=== PATIENT | male | born 1985 | race Caucasian/White ===

== ENCOUNTER 2025-09-18 14:19 | Emergency (ER) | payer SELFPAY ==
[~2025-09-18] VITALS: Ht 177.8 cm; Wt 75.0 kg
[2025-09-18 14:22] VITALS: O2SAT 98
[2025-09-18] MEDS: SODIUM CHLORIDE 0.9% 1,000 ML IV ONE (14:57)
[2025-09-18 15:04] LABS: BASOPHILS % 0.8 % (0.0-2.0); EOSINOPHILS % 0.4 % (0.0-5.0); HEMATOCRIT. 44.9 % (42.0-52.0); HEMOGLOBIN. 15.7 g/dL (14.0-18.0); LYMPHOCYTES % 33.2 % (20.0-50.0); MEAN PLATELET VOLUME 10.0 fl (7.4-10.4); MONOCYTES % 5.8 % (2.0-8.0); NEUTROPHILS % 59.8 % (40.0-76.0); PLATELET 222 x1000/uL (130-400); RED BLOOD CELL COUNT 5.00 mill/uL (4.7-6.1); RED CELL DISTRIBUTION WIDTH 12.6 % (11.6-14.6)
[2025-09-18 15:16] LABS: CREATININE 1.2 mg/dL (0.6-1.3)
[2025-09-18 15:17] LABS: UREA NITROGEN BLOOD 9 mg/dL (9-23)
[2025-09-18 15:18] LABS: ASPARTATE AMINOTRANSFERASE 24 IU/L (<34)
[2025-09-18 15:19] LABS: BILIRUBIN DIRECT 0.3 mg/dL (<=3.0); BILIRUBIN TOTAL 1.0 mg/dL (0.1-1.0); PROTEIN TOTAL 7.5 g/dL (6.0-8.3)
[2025-09-18 15:20] LABS: TROPONIN I HIGH SENSITIVITY < 4 ng/L (3.0-53)
[2025-09-18 15:22] LABS: T4 FREE 1.44 ng/dL (0.89-1.76)
[2025-09-18 15:24] LABS: INR 1.0
[2025-09-18 17:42] VITALS: BP 122/77; PULSE 82; RESP 16; TEMP 37.2; O2SAT 98
[2025-09-18 18:47] LABS: INFLUENZA TYPE A Presumptive Negative (Pres. Neg.); INFLUENZA TYPE B Presumptive Negative (Pres. Neg.); RESPIRATORY SYNCYTIAL VIRUS Not Detected (Not Detectd)
== END 2025-09-18 17:45 | disposition home or self-care (01) ==
LOC: ER 15:17 → CMPBEDREQ 09-19 11:08
DX: I47.9 Paroxysmal tachycardia, unspecified (principal); R00.2 Palpitations; E78.00 Pure hypercholesterolemia, unspecified; Z20.822 Contact with and (suspected) exposure to COVID-19
CPT/HCPCS: 99285; 96360; 71045; 87426; 80076; 80048; 84439; 83735; 84443; 85025; 85379; 85610; 87420; 84484; 87804 ×2; 36415; 93005; J7030

== ENCOUNTER 2025-09-22 14:02 | Inpatient (IN) | payer OTHER ==
[~2025-09-22] VITALS: Ht 170.2 cm; Wt 74.5 kg
[2025-09-22 14:04] VITALS: O2SAT 100
[2025-09-22] MEDS: SODIUM CHLORIDE 0.9% 1,000 ML IV ONE (14:45)
[2025-09-22 15:05] LABS: BASOPHILS % 1.0 % (0.0-2.0); EOSINOPHILS % 0.9 % (0.0-5.0); HEMATOCRIT. 44.4 % (42.0-52.0); HEMOGLOBIN. 15.4 g/dL (14.0-18.0); LYMPHOCYTES % 28.2 % (20.0-50.0); MEAN PLATELET VOLUME 9.8 fl (7.4-10.4); MONOCYTES % 5.5 % (2.0-8.0); NEUTROPHILS % 64.4 % (40.0-76.0); PLATELET 206 x1000/uL (130-400); RED BLOOD CELL COUNT 4.92 mill/uL (4.7-6.1); RED CELL DISTRIBUTION WIDTH 12.5 % (11.6-14.6)
[2025-09-22 15:19] LABS: CREATININE 1.1 mg/dL (0.6-1.3); UREA NITROGEN BLOOD 11 mg/dL (9-23)
[2025-09-22 15:21] LABS: TROPONIN I HIGH SENSITIVITY < 4 ng/L (3.0-53)
[2025-09-22 15:29] LABS: INR 1.0
[2025-09-22] MEDS: LORAZEPAM 1MG TABLET PO STA (16:28)
[2025-09-22 17:15] LABS: *AMPHETAMINES SCREEN URINE NEGATIVE (NEGATIVE); *BARBITURATES SCREEN URINE NEGATIVE (NEGATIVE); *BENZODIAZEPINES SCREEN URINE NEGATIVE (NEGATIVE); *COCAINE SCREEN URINE NEGATIVE (NEGATIVE); CANNABINOID URINE SCREEN NEGATIVE (NEGATIVE); ECSTASY MDMA SCREEN URINE NEGATIVE (NEGATIVE); METHADONE URINE SCREEN NEGATIVE (NEGATIVE); OPIATES URINE SCREEN NEGATIVE (NEGATIVE); PHENCYCLIDINE URINE SCREEN NEGATIVE (NEGATIVE)
[2025-09-22 19:33] LABS: TROPONIN I HIGH SENSITIVITY < 4 ng/L (3.0-53)
[2025-09-22] MEDS ORDERED: ACETAMINOPHEN 325MG TABLET PO PRN ×2 (21:15)
[2025-09-22] MEDS ORDERED: IPRATROPIUM/ALBUTEROL 0.5-3(2.5)MG/3ML NEB HHN PRN (21:15)
[2025-09-22] MEDS ORDERED: GUAIFENESIN 200MG/10ML SUGAR FREE UDC PO PRN (21:15)
[2025-09-22] MEDS ORDERED: MAGNESIUM/ALUMINUM HYDROXIDE/SIMETHICONE 30ML UDC PO PRN (21:15)
[2025-09-22] MEDS ORDERED: ONDANSETRON HCL 4MG/2ML INJ IV PRN (21:15)
[2025-09-22] MEDS ORDERED: DOCUSATE SODIUM 100MG CAPSULE PO PRN (21:15)
[2025-09-22] MEDS ORDERED: CLONIDINE 0.1MG TABLET PO PRN (21:15)
[2025-09-22 21:45] VITALS: BP 138/89; PULSE 82; RESP 16; TEMP 36.6404
[2025-09-22] MEDS: LORAZEPAM 0.5MG TABLET PO PRN (22:07)
[2025-09-23] VITALS: BP 113/76; PULSE 57; RESP 16; TEMP 36.7; O2SAT 99
[2025-09-23] MEDS ORDERED: MULT-1146 MT (00:17)
[2025-09-23] MEDS ORDERED: BICT1TAB3 (00:17)
[2025-09-23] MEDS ORDERED: KRIL1CAP40 MT (00:17)
[2025-09-23 04:00] VITALS: BP 98/55; PULSE 53; RESP 16; TEMP 36.6; O2SAT 99
[2025-09-23 06:26] LABS: TRIGLYCERIDE 126.0 mg/dL (0-150)
[2025-09-23 06:27] LABS: LDL CHOLESTEROL 135.0 mg/dL (5-100)
[2025-09-23 08:00] VITALS: BP 113/70; PULSE 91; RESP 16; TEMP 36.3; O2SAT 99
[2025-09-23 12:00] VITALS: BP 110/73; PULSE 76; RESP 17; TEMP 36.4; O2SAT 98
[2025-09-23] MEDS ORDERED: OMEP20TA23 MT (12:26)
[2025-09-23] MEDS ORDERED: LORA-249 MT (12:28)
[2025-09-23 13:32] VITALS: BP 110/73; PULSE 76; RESP 17; TEMP 97.5
[2025-09-23] MEDS ORDERED: FAMOTIDINE 20MG TABLET PO SCH (21:00)
== END 2025-09-23 14:52 | disposition home or self-care (01) | DRG 310 ==
LOC: ER 14:02 → EDBEDREQTM 18:31 → EDBEDREQ 18:31 → ENRESERV 20:18 → 5WST 21:02
PROVIDERS: ADMIT Hospitalist; ATTEND Hospitalist
DX: R00.2 Palpitations (principal); E78.00 Pure hypercholesterolemia, unspecified; J45.909 Unspecified asthma, uncomplicated; Z21 Asymptomatic human immunodeficiency virus [HIV] infection status; G47.33 Obstructive sleep apnea (adult) (pediatric); Z86.0100 Personal history of colon polyps, unspecified; Z80.0 Family history of malignant neoplasm of digestive organs; Z79.899 Other long term (current) drug therapy
CPT/HCPCS: 36415; 71045; 80048; 80061; 80305; 83735; 83880; 84484; 85025; 93005; 96360; 99285; A4606; J7030